=== PATIENT | female | born 1960 | race Caucasian/White ===

== ENCOUNTER → 2021-07-17 10:53 | Outpatient (BNVA) | payer OTHER, SELFPAY | PROVIDERS: PCP Internal Medicine; Visit Provider Physician Assistant Medical | DX: S39.011A Strain of muscle, fascia and tendon of abdomen, initial encounter (principal); S39.012A Strain of muscle, fascia and tendon of lower back, initial encounter; S46.911A Strain of unspecified muscle, fascia and tendon at shoulder and upper arm level, right arm, initial encounter; W18.2XXA Fall in (into) shower or empty bathtub, initial encounter | CPT/HCPCS: 99203 ==

== ENCOUNTER → 2021-07-20 11:16 | Outpatient (BNVA) | payer OTHER, SELFPAY | PROVIDERS: PCP Internal Medicine; Visit Provider Physician Assistant Medical | DX: R10.30 Lower abdominal pain, unspecified (principal); X58.XXXA Exposure to other specified factors, initial encounter | CPT/HCPCS: 99213 ==

== ENCOUNTER → 2021-08-03 10:34 | Outpatient (BNVA) | payer OTHER, SELFPAY | PROVIDERS: PCP Internal Medicine; Visit Provider Physician Assistant Medical | DX: S76.311A Strain of muscle, fascia and tendon of the posterior muscle group at thigh level, right thigh, initial encounter (principal); S39.011A Strain of muscle, fascia and tendon of abdomen, initial encounter; S39.012A Strain of muscle, fascia and tendon of lower back, initial encounter; X58.XXXA Exposure to other specified factors, initial encounter | CPT/HCPCS: 99213 ==

== ENCOUNTER → 2021-08-11 08:23 | Outpatient (BNVA) | payer OTHER, SELFPAY | PROVIDERS: PCP Internal Medicine; Visit Provider Physician Assistant Medical | DX: S39.012D Strain of muscle, fascia and tendon of lower back, subsequent encounter (principal); S39.011D Strain of muscle, fascia and tendon of abdomen, subsequent encounter; S76.311D Strain of muscle, fascia and tendon of the posterior muscle group at thigh level, right thigh, subsequent encounter; X58.XXXD Exposure to other specified factors, subsequent encounter | CPT/HCPCS: 99213 ==

== ENCOUNTER → 2021-08-24 08:33 | Outpatient (BNVA) | payer OTHER, SELFPAY | PROVIDERS: PCP Internal Medicine; Visit Provider Physician Assistant Medical | DX: S39.011D Strain of muscle, fascia and tendon of abdomen, subsequent encounter (principal); S76.311D Strain of muscle, fascia and tendon of the posterior muscle group at thigh level, right thigh, subsequent encounter; S39.012D Strain of muscle, fascia and tendon of lower back, subsequent encounter; X58.XXXD Exposure to other specified factors, subsequent encounter | CPT/HCPCS: 99213 ==

== ENCOUNTER → 2021-08-28 08:01 | Outpatient (BNVA) | payer OTHER, SELFPAY | PROVIDERS: Visit Provider Physician Assistant | DX: S76.311A Strain of muscle, fascia and tendon of the posterior muscle group at thigh level, right thigh, initial encounter (principal); W18.2XXA Fall in (into) shower or empty bathtub, initial encounter; Y93.E1 Activity, personal bathing and showering; Y92.002 Bathroom of unspecified non-institutional (private) residence as the place of occurrence of the external cause; Y99.8 Other external cause status; M54.50 Low back pain, unspecified | CPT/HCPCS: 99202 ==

== ENCOUNTER → 2021-08-31 08:02 | Outpatient (BNVA) | payer OTHER, SELFPAY | PROVIDERS: PCP Pediatrics; Visit Provider Physician Assistant Medical | DX: S76.311D Strain of muscle, fascia and tendon of the posterior muscle group at thigh level, right thigh, subsequent encounter (principal); S39.011D Strain of muscle, fascia and tendon of abdomen, subsequent encounter; S39.012D Strain of muscle, fascia and tendon of lower back, subsequent encounter; X58.XXXD Exposure to other specified factors, subsequent encounter; Z02.79 Encounter for issue of other medical certificate | CPT/HCPCS: 99213 ==

== ENCOUNTER 2021-09-10 07:00 | Outpatient (RCR) | payer OTHER, SELFPAY ==
--- NOTE | 2021-07-22 15:26 | MHC.PT.EP ---
[facility] [place] Office [place] Office [place] Office [address] Celia Mckeon [address] [phone] F: [phone] F: [phone] F: [phone] F: [phone] Physical Therapy Plan of Care Date of Evaluation: Date of Surgery: NA Diagnosis: RIGHT GROIN/HAMSTRING STRAIN, LUMBAR STRAIN. ONSET 07/17/21 Assessment: Pt IS 60 YO F REFERRED TO PT WITH R GROIN/HS STREAIN, LUMBAR STRAIN FROM WC AFTER INJURY ON 07/17/21 WHEN SHE SLIPPED AT WORK (ON LIQUID SOAP) THAT HAD SPILLED ON FLOOR OF SHOWER. Pt WAS ABLE TO GRAB BAR TO STOP FALL. PRESENTS WITH R GROIN PAIN, HS PAIN AND LB PAIN. DECREASED END ROM TRUNK, DECREASED ROM R KNEE WITH ANTALGIC GT. REPORTS LIMITED SIT, STAND, WALK TIME AND DIFFICULTY SLEEPING. SOME RELIEF WITH MM RELAXER. 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 SHOULD BENEFIT FROM PT TO ADDRESS THESE ISSUES. FU 08/03/21 (WITH POSSIBLE RTW) Frequency and Duration: The patient will be seen 2X/WK X 6 WKS Short Term Goals: 1. INCREASED AWARENESS POSTURE, BACK CARE 2. Pt TO PERF 2-3 TASKS WITH PROPER BODY MECH 3. I HEP WITH DC EX PLAN 4. IMPROVED SLEEP 5. 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 R KNEE ROM 0-125 2. INCREASED R LE STRENGTH 1/2 MM GRADE 3. DECREASED R LB/GROIN/LE PAIN AT LEAST 50% WITH ADLS 4. RTW Treatment Plan: Modalities to reduce pain, spasms and effusion. Manual therapy to restore motion and function. Therapeutic exercise to improve strength and flexibility. Neuromuscular re-education for posture and balance. Therapeutic activities to return to functional activities of daily living. Electronically signed by: EMI MONTGOMERY PT Please sign and return to therapist. Thank you for your referral.
--- NOTE | 2021-10-21 13:40 | MHC.PT.DC ---
[facility] [place] Office [place] Office [place] Office [address] Celia Mckeon [address] [phone] F: [phone] F: [phone] F: [phone] F: [phone] Physical Therapy Discharge Report Diagnosis: RIGHT GROIN/HAMSTRING STRAIN, LUMBAR STRAIN. ONSET 07/17/21 Date of Surgery: NA Date of Evaluation: 07/22/21 Date of Discharge: 10/21/21 Treatments to Date: 13 Cancellations to Date: No Shows to Date: Discharge Status: Patient Elected to Stop Physician Discontinued Tx Discharge Summary: Pt SEEN FOR INIT EVAL AND 13 VISITS. PER HER LAST NOTE ON 09/10/21 BY ELLE WHITE PT,DPT Pt continues to ask for review and completion of therex tasks which have been reviewed at length with her in the past. Pt continues to report limited tolerance/endurance of therex and states needs to leave early to meet her other follow up at [facility].' Pt THEN CANCELLED FURTHER APPTS (PER NOTE, Pt TO BE REFERRED FOR MASSAGE THERAPY) Electronically signed by: EMI MONTGOMERY PT Please sign and return to therapist. Thank you for your referral.
== END 2021-10-21 13:40 | disposition home or self-care (01) ==
LOC: HO.PTWFD 07:00
PROVIDERS: Visit Provider Physician Assistant Medical
DX: S39.011D Strain of muscle, fascia and tendon of abdomen, subsequent encounter (principal); S39.012D Strain of muscle, fascia and tendon of lower back, subsequent encounter; S76.911D Strain of unspecified muscles, fascia and tendons at thigh level, right thigh, subsequent encounter
CPT/HCPCS: 97014; 97110; 97140; 97161; 97535

== ENCOUNTER → 2021-09-10 07:56 | Outpatient (BNVA) | payer OTHER, SELFPAY | PROVIDERS: PCP Pediatrics; Visit Provider Physician Assistant Medical | DX: S39.011D Strain of muscle, fascia and tendon of abdomen, subsequent encounter (principal); S76.311D Strain of muscle, fascia and tendon of the posterior muscle group at thigh level, right thigh, subsequent encounter; S39.012D Strain of muscle, fascia and tendon of lower back, subsequent encounter; X58.XXXD Exposure to other specified factors, subsequent encounter | CPT/HCPCS: 99213 ==

== ENCOUNTER → 2021-09-15 11:26 | Outpatient (BNVA) | payer OTHER, SELFPAY | PROVIDERS: PCP Pediatrics; Visit Provider Physician Assistant Medical | DX: S39.011D Strain of muscle, fascia and tendon of abdomen, subsequent encounter (principal); S76.311D Strain of muscle, fascia and tendon of the posterior muscle group at thigh level, right thigh, subsequent encounter; S39.012D Strain of muscle, fascia and tendon of lower back, subsequent encounter; X58.XXXD Exposure to other specified factors, subsequent encounter | CPT/HCPCS: 99213 ==

== ENCOUNTER → 2021-09-21 07:56 | Outpatient (BNVA) | payer OTHER, SELFPAY | PROVIDERS: PCP Pediatrics; Visit Provider Physician Assistant Medical | DX: S39.011D Strain of muscle, fascia and tendon of abdomen, subsequent encounter (principal); S76.311D Strain of muscle, fascia and tendon of the posterior muscle group at thigh level, right thigh, subsequent encounter; X58.XXXD Exposure to other specified factors, subsequent encounter | CPT/HCPCS: 99213 ==

== ENCOUNTER → 2021-10-06 07:48 | Outpatient (BNVA) | payer OTHER, SELFPAY | PROVIDERS: PCP Pediatrics; Visit Provider Physician Assistant Medical | DX: S39.011D Strain of muscle, fascia and tendon of abdomen, subsequent encounter (principal); S76.311D Strain of muscle, fascia and tendon of the posterior muscle group at thigh level, right thigh, subsequent encounter; S39.012D Strain of muscle, fascia and tendon of lower back, subsequent encounter; X58.XXXD Exposure to other specified factors, subsequent encounter | CPT/HCPCS: 99213 ==

== ENCOUNTER → 2021-10-27 07:50 | Outpatient (BNVA) | payer OTHER, SELFPAY | PROVIDERS: PCP Pediatrics; Visit Provider Physician Assistant Medical | DX: S31.113D Laceration without foreign body of abdominal wall, right lower quadrant without penetration into peritoneal cavity, subsequent encounter (principal); S76.311D Strain of muscle, fascia and tendon of the posterior muscle group at thigh level, right thigh, subsequent encounter; S39.012D Strain of muscle, fascia and tendon of lower back, subsequent encounter; X58.XXXD Exposure to other specified factors, subsequent encounter | CPT/HCPCS: 99213 ==

== ENCOUNTER → 2024-04-17 13:48 | Outpatient (BNVA) | payer OTHER, SELFPAY | PROVIDERS: PCP Pediatrics; Visit Provider Registered Nurse | DX: S90.01XA Contusion of right ankle, initial encounter (principal); W22.8XXA Striking against or struck by other objects, initial encounter | CPT/HCPCS: 73610; 99203 ==

== ENCOUNTER → 2024-04-20 09:37 | Outpatient (BNVA) | payer OTHER, SELFPAY | PROVIDERS: PCP Pediatrics; Visit Provider Registered Nurse | DX: S90.01XA Contusion of right ankle, initial encounter (principal); W22.8XXA Striking against or struck by other objects, initial encounter | CPT/HCPCS: 99213 ==

== ENCOUNTER → 2024-04-23 08:12 | Outpatient (BNVA) | payer OTHER, SELFPAY | PROVIDERS: PCP Pediatrics; Visit Provider Registered Nurse | DX: S90.01XA Contusion of right ankle, initial encounter (principal); W22.8XXA Striking against or struck by other objects, initial encounter | CPT/HCPCS: 99213 ==

== ENCOUNTER → 2024-04-27 08:55 | Outpatient (BNVA) | payer OTHER, SELFPAY | PROVIDERS: PCP Pediatrics; Visit Provider Registered Nurse | DX: S93.401A Sprain of unspecified ligament of right ankle, initial encounter (principal); W22.8XXA Striking against or struck by other objects, initial encounter | CPT/HCPCS: 99213 ==

== ENCOUNTER → 2024-05-14 10:51 | Outpatient (BNVA) | payer OTHER, SELFPAY | PROVIDERS: PCP Pediatrics; Visit Provider Physician Assistant Medical | DX: S97.01XD Crushing injury of right ankle, subsequent encounter (principal); W22.8XXD Striking against or struck by other objects, subsequent encounter | CPT/HCPCS: 73610; 99213 ==

== ENCOUNTER → 2024-05-25 09:25 | Outpatient (BNVA) | payer OTHER, SELFPAY | PROVIDERS: PCP Pediatrics; Visit Provider Registered Nurse | DX: S90.01XD Contusion of right ankle, subsequent encounter (principal); W22.8XXD Striking against or struck by other objects, subsequent encounter | CPT/HCPCS: 99214 ==

== ENCOUNTER → 2024-06-04 15:09 | Outpatient (BNVA) | payer OTHER, SELFPAY | PROVIDERS: PCP Pediatrics; Visit Provider Physician Assistant Medical | DX: S90.01XD Contusion of right ankle, subsequent encounter (principal); W22.8XXD Striking against or struck by other objects, subsequent encounter | CPT/HCPCS: 99213 ==

== ENCOUNTER → 2024-06-26 14:38 | Outpatient (BNVA) | payer OTHER, SELFPAY | PROVIDERS: PCP Pediatrics; Visit Provider Registered Nurse | DX: S90.01XD Contusion of right ankle, subsequent encounter (principal); W22.8XXD Striking against or struck by other objects, subsequent encounter | CPT/HCPCS: 99214 ==

== ENCOUNTER 2024-07-14 10:47 | Outpatient (REF) | payer OTHER, SELFPAY ==
--- NOTE | ~2024-07-14 | MR_ITS ---
EXAMINATION: MR ANKLE WITHOUT CONTRAST, RIGHT CLINICAL INFORMATION: Right ankle pain, swelling, numbness. Medial malleolar trauma on 04/16/2024. COMPARISON: Right ankle radiographs dated 04/17/2024 and 05/14/2024. TECHNIQUE: MRI of the ankle was performed using routine sequences on a high-field scanner. FINDINGS: BONE AND ARTICULAR CARTILAGE: Focal marrow edema within the dorsal/lateral aspect of the navicula as well as minimal patchy edema within the proximal aspect of the medial cuneiform. Additional patchy marrow edema within the calcaneal neck adjacent to the angle of the [place]. Findings could represent stress reactions or osseous contusions. No fracture. No dislocation. No talar osteochondral lesion. Intact articular cartilage. ACHILLES TENDON: Mild edema adjacent to the distal Achilles tendon consistent with minimal peritendinitis. No tendon tear. OTHER TENDONS: Intact. LIGAMENTS: Heterogeneity of the anterior and posterior talofibular ligaments consistent with remote sprain/partial tears. No evidence of acute ligament injury. JOINT FLUID AND SOFT TISSUES: No joint effusion. No soft tissue mass or fluid collection. PLANTAR FASCIA: Tiny plantar calcaneal spur with minimal reactive marrow edema which could indicate minimal plantar fasciitis. No fascial tear. SINUS TARSI AND TARSAL TUNNEL: Mild edema within the sinus tarsi which can be seen in the setting of sinus tarsi syndrome. Patent tarsal tunnel. MR/MR ankle RT wo con IMPRESSION: 1. Focal marrow edema within the dorsal/lateral aspect of the navicular as well as minimal patchy edema within the medial cuneiform and calcaneal neck. Findings could represent stress reactions or osseous contusions. No associated fracture line. 2. Minimal distal Achilles peritendinitis without a measurable tendon tear. 3. Remote sprain/partial tears of the anterior and posterior talofibular ligaments. No evidence of acute ligament injury. 4. Tiny plantar calcaneal spur with minimal reactive marrow edema which could indicate minimal plantar fasciitis. 5. Mild edema within the sinus tarsi which can be seen in the setting of sinus tarsi syndrome. Electronically signed by: Jeffy Turpin MD 07/17/2024 02:10 PM EDT Workstation: [id number]
== END 2024-07-14 10:48 | disposition home or self-care (01) ==
LOC: HO.MRI 10:47
PROVIDERS: PCP Pediatrics; Visit Provider Internal Medicine
DX: R60.0 Localized edema (principal); R20.0 Anesthesia of skin
CPT/HCPCS: 73721

== ENCOUNTER 2024-07-19 07:00 | Outpatient (RCR) | payer OTHER, SELFPAY ==
--- NOTE | 2024-05-22 12:16 | MHC.PT.EP ---
[facility] [place] Office [place] Office [place] Office [address] Celia Mckeon [address] [phone] F: [phone] F: [phone] F: [phone] F: [phone] Physical Therapy Plan of Care Date of Evaluation: 05/22/24 Date of Surgery: NA Diagnosis: Per Jennifer Sheehan PA-C: R ankle injury. Treat 2-3X/wk for 4-6 wks, date of script 05/14/24 Assessment: Pt. is a 63 y/o female referred to PT from Jennifer Sheehan PA-C from [facility] date of script on 05/14/24 following an ankle injury at work on 04/16/24. She presents with decreased strength and ROM ankle PF, DF, eversion//eversion, and rearfoot eversion/inversion on the R (painful), decreased great toe extension strength and ROM on the R (painful), increased R ankle/foot swelling, pain w/ subtalar and talocrural joint distraction, tight R soleus ms, and TTP to R medial/anterior ankle/foot. Has weakness and pain with plantar flexion/inversion (tib posterior), sx with active DF (anterior tibialis) She is currently very guarded and not putting equal weight on both extremities. Due to her injury she is currently out of work. Based on the treatment findings, the pt is a good candidate for PT. She is currently in good health and has had a positive outcome with PT in the past. She will attend PT 2-3X/wk for 4-6 wks. Treatment will include LE ROM and strengthening exercises (OKC and CKC), joint mobilizations, and manual therapy/modalities as needed. After today's visit pt was encouraged to continue to ice often and work on ankle pumps and gentle ankle motion inversion/eversion ROM. Pt. also mentioned increased stress during this time and PT talked to the pt about other resources such as a counselor/therapist due to other factors which have occurred in her life. Pt reports history of workplace support counseling services, therapist encouraged patient to reach out to access these services. Frequency and Duration: The patient will be seen 2X-3/wk for 4-6 wks Short Term Goals: -Increase R ankle AROM dorsiflexion to 12 degrees (IR: 12 degrees) -Increase R ankle AROM plantarflexion to 50 degrees (IR: 30 degrees) -Pt will be able to tie her shoes fully due to decreased swelling -Demonstrate symmetrical weight-bearing with functional squat. -Pt will negotiate 6 inch step with reciprocal motion. -Pt RTW ligth duty with good body mechanics/safety to avoid reinjury . [facility] Goals: -Pt. will be able to stand for 1 hour w/o sx's >2/10 -Pt. will increase R dorsiflexion strength to 5/5 (IR: 3+/5) -Pt. will increase R eversion strength to 5/5 (IR: 3+/3) -Pt will increase LEFI score by 25% -Pt. will be independent w/ HEP -Pt will RTW full duty with good mechanics and safety to avoid reinjury. Treatment Plan: Modalities to reduce pain, spasms and effusion. Manual therapy to restore motion and function. Therapeutic exercise to improve strength and flexibility. Neuromuscular re-education for posture and balance. Therapeutic activities to return to functional activities of daily living. Electronically signed by: Stephanie Ibarra, PT, DPT Please sign and return to therapist. Thank you for your referral.
--- NOTE | 2024-06-29 09:36 | MHC.PT.OD ---
[facility] [place] Office [place] Office [place] Office [address] Celia Mckeon [address] [phone] F: [phone] F: [phone] F: [phone] F: [phone] Physical Therapy Daily Note Diagnosis: Per Jennifer Sheehan PA-C: R ankle injury. Treat 2-3X/wk for 4-6 wks, date of script 05/14/24 Date of Surgery: NA Date of Evaluation: 05/22/24 Date of Treatment: 06/29/24 Treatments to Date: 9 Cancellations to Date: No Shows to Date: Authorized Visits: Insurance End Date: Precautions/ Contraindications:hx work related injury DOI 04/16/24 Pt reports history of multiple incident of being run over by DIVYA ? work safety Subjective: Pt taking naproxen. States is waiting on an MRI and ortho follow up. Pain Score and Location: 5 R MEDIAL ANKLE Objective Flowsheet: Tests & Measures Rates sx 4-710 over medial aspect of ankle, TTP posterior tibialis tendon. Functional squat: fair symmetry with sx reported end range at 45 degrees medial aspect of R ankle L SLS 4 seconds with loss of stability, weakness in knee/trunk/core noted R SLS <2 seconds with report of pain medial aspect TP on R ankle AROM PF 35 degrees limited by pain, PROM 40, AROM DF -10 degrees PROM near neutral, AAROM seated DF 5 degrees, AROM IV 5 degrees sx, PROM 5 limited by pain AROM EV 2 degrees sx, PROM 5 degrees limited by pain TTP posterior tibialis tendon DF 4/5, R PF 3+/5, R IV 3/5, R EV 3/5. Pt able to ascend and descend stairs expresses descending a 6 inch step step I can do this, it is easy. Sx with lateral step up and trial of squatting this . Exercises Scifit bike seat 7 level 2.6-3 [id number] FOR WARM UP Reassessment completed: see below: SQUAT able to do 45 degrees, deeper than 45 had pain, L SLS >20 seconds, R SLS 5 seconds with report of pressure and pain in posterior tib region. R DF 3+/5, R PF 3/5 but pain, R IV 3/5 sx, R EV 4/5. Pt unable to crouch, expresses pain with rising from half-kneeling on either side with UE support required. Attempt of standing 4 way resisted hip- performed hip extension on R LE with clog on while taped x 12R and then had onset of burning (only did standing on R hip extension). Pt noted to take her shoe off and deferred other trial movements in CK due to report of burning stating, it comes and goes I dont know why. Pt completed seated ankle DF stretch x 5R x 20 seconds, reinforcement of stretching ankle gastroc stretch to tolerance. Pt deferred trial of seated BAPS, expressing worsening burning sx since Tuesday session. Encouraged AAROM DF stretch, AROM of ankle all planes to tolerance. STANDING 4 WAY HIP (TO WORK ON ANKLE STABILITY) WITH RED TB X 10 R EA DIRECTION, EA SIDE ROCKTAPE support provided for tib posterior support (pt wearing clogs this date) Pt QUESTIONS UE OF TENS (HAS ONE SHE CAN USE) ED RE BENEFIT VS NON BENEFIT OF TENS USE Modalities ED TO ICE PRN TODAY Assessment: 06/29/24: Pt has attended 9 session of PT to date exhibiting plateaued status with initial positive gain with introduction into [facility], now today expressing worsening pain and limited tolerance. She reports soreness following last session *had pain with active standing heel raise*. Today AROM R DF 10, AROM PF 22 limited by pain, AROM IV 2, PROM 5 limited by pain, AROM EV 2, PROM 5 limited by pain. Pt TTP posterior tib tendon, reports pain at night which wakes her. Pt expresses use of naproxen. Pt is able to squat to 45 degrees but expresses pain medial inferior ankle/tib posterior region with greater depth. She is unable to crouch down without expressing worsening pain in that area. She had greater difficulty rising from a half kneeling on the right>left side. Able to do 6 inch step ascending/descending with R LE slowly but has pain with more than a few reps. She was able to get up with assistance from her upper body. L SLS >20 seconds, R SLS <5 seconds with report of pain in posterior tib area. Pt expresses sx of burning in medial aspect of ankle. Pt completed standing extension and was noted to stop stating, its burning and it comes and goes. Pt exhibits plataeaued progress with PT, expressing worsening pain and report of burning with trial of CKC today. She was offered to trial seated>standing BAPS but deferred. She is awaiting orthopedic/MRI of her R ankle. Pt was encouraged to perform icing and use anti-inflammatory as prescribed by her provider. Pt will be tapered in frequency to 1x/week due to plateaued status, await ortho/MRI. Pt exhibits signs and sx consistent with a R posterior tib tendonitis. Pt verbalizes burning and pain with ambulation. Pt states this AM was not bothersome before coming in to office. Poor tolerance for CKC tasks trial>attempt today. Held further CKC due to pt sx/report of pain, rated 5/10. PT Plan: Pt to continue 1x/week. Short Term Goals: -Increase R ankle AROM dorsiflexion to 12 degrees (IR: 12 degrees) -Increase R ankle AROM plantarflexion to 50 degrees (IR: 30 degrees) -Pt will be able to tie her shoes fully due to decreased swelling -Demonstrate symmetrical weight-bearing with functional squat. -Pt will negotiate 6 inch step with reciprocal motion. -Pt RTW ligth duty with good body mechanics/safety to avoid reinjury . Longterm Goals: -Pt. will be able to stand for 1 hour w/o sx's >2/10 -Pt. will increase R dorsiflexion strength to 5/5 (IR: 3+/5) -Pt. will increase R eversion strength to 5/5 (IR: 3+/3) -Pt will increase LEFI score by 25% -Pt. will be independent w/ HEP -Pt will RTW full duty with good mechanics and safety to avoid reinjury. Electronically signed by: Stephanie Ibarra, PT, DPT
== END 2024-09-18 13:26 | disposition home or self-care (01) ==
LOC: HO.PTWFD 07:00
PROVIDERS: PCP Pediatrics; Visit Provider Physician Assistant Medical
DX: S99.911D Unspecified injury of right ankle, subsequent encounter (principal)
CPT/HCPCS: 97110; 97140; 97161; 97164; 97530

== ENCOUNTER 2024-07-20 08:01 | Outpatient (AMB) | payer OTHER, SELFPAY ==
--- NOTE | 2024-07-20 08:19 | A.OFFVIS_ITS ---
Vital Signs 07/20/24 08:22 Height 5 ft 4 in Weight 178 lb BMI 30.6 Handedness Right Intake Visit Reasons: New Pt - RT ankle injury, 04/16/24 Intake Note: Giuliana is a 63 year old female who presents today as a new patient for a evaluation of her right ankle injury, 04/16/24. MRI was done on 07/14/24. Patient reports pushing a divya lift at work and she was hit on the medial side of her ankle. 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 Allergies No Known Allergies Allergy (Verified 07/20/24 08:21) HPI HPI New Pt - RT ankle injury, 04/16/24: Details: 63-year-old female who presents in the office today for an evaluation of right ankle pain. The patient was originally seen at [facility] on 04/17/24 status post injuring her right ankle while at work on 04/16/24. While under the care of [facility] the patient has been attending physical therapy since 05/22/24 for 11 sessions, working on home exercises, using kinesiology tape, ankle brace, and she was prescribed naproxen 500 mg BID PRN. Due to the patient reporting continued pain and no progression with physical therapy an MRI was ordered. ? ? While in the office today, the patient reports she was pushing a [employer] lift at work and it hit her on the medial aspect of the right ankle. She confirms attending PT but states it gave her no relief. ? 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 No ecchymosis, erythema, or edema. Tenderness to palpation along the tibial tendon. Patient is able to demonstrate dorsiflexion, plantar flexion, pronation and supination. Negative anterior drawer.?Report intermitting numbness and tingling associated with pain.?Pedal Pulse intact.? Assessment & Plan Assessment & Plan (1) Contusion of right ankle: Code(s): S90.01XA - Contusion of right ankle, initial encounter Category: Medical (2) Right ankle pain: Code(s): M25.571 - Pain in right ankle and joints of right foot Category: Medical Plan Ms. Juarez is a 63-year-old female who presents in the office today for an evaluation of right ankle pain. The patient was originally seen at [facility] on 04/17/24 status post injuring her right ankle while at work on 04/16/24. While under the care of [facility] the patient has been attending physical therapy since 05/22/24 for 11 sessions, working on home exercises, using kinesiology tape, ankle brace, and she was prescribed naproxen 500 mg BID PRN. Due to the patient reporting continued pain and no progression with physical therapy an MRI was ordered. ? ? While in the office today, the patient reports she was pushing a [employer] lift at work and it hit her on the medial aspect of the right ankle. She confirms attending PT but states it gave her no relief.? ? The patient will continue on light duty status at work. She does report intermitting numbness and tingling associated with pain. She states she is unable to stand for long periods of time due to pain. She has been attending physical therapy but feels she has hit a plateau and is unable to progress. Therefore, we will order an EMG study to evaluate the nerves in the right ankle. The patient was supplied with ROI² card and will call one the EMG is obtained. Follow-up will be after the EMG is obtained, or sooner if needed. ? ? MRI of the right ankle, obtained on 07/14/24, revealed:? 1. Focal marrow edema within the dorsal/lateral aspect of the navicular as well as minimal patchy edema within the medial cuneiform and calcaneal neck. Findings could represent stress reactions or osseous contusions. No associated fracture line.? 2. Minimal distal Achilles peritendinitis without a measurable tendon tear.? 3. Remote sprain/partial tears of the anterior and posterior ? talofibular ligaments. No evidence of acute ligament injury.? 4. Tiny plantar calcaneal spur with minimal reactive marrow edema which could indicate minimal plantar fasciitis.? 5. Mild edema within the sinus tarsi which can be seen in the setting of sinus tarsi syndrome.? ? X-rays of the right ankle, obtained on 05/14/24, revealed no acute fracture or dislocation. ? Orders: Orders NE electromyogram (EMG) Today M25.571 - Pain in right ankle and joints of right foot Patient Instructions: Scribed by Salome Pierce medical transcription, for Tuyet Rey PA-C on 07/20/2024 at 8:43 am, EST.? Coding Level of Care Code New Pt Level 4 (13342) Complex EM visit Add On G2211 Diagnoses Contusion of right ankle S90.01XA Right ankle pain M25.571
[2024-07-20 08:22] VITALS: BMI 30.6
== END 2024-07-20 08:46 | disposition home or self-care (01) ==
PROVIDERS: PCP Pediatrics; Visit Provider Physician Assistant
DX: S90.01XA Contusion of right ankle, initial encounter (principal)
CPT/HCPCS: 99213

== ENCOUNTER → 2024-07-20 08:01 | Outpatient (BNVA) | payer OTHER, SELFPAY | PROVIDERS: PCP Pediatrics; Visit Provider Physician Assistant | DX: S90.01XA Contusion of right ankle, initial encounter (principal) | CPT/HCPCS: 99212 ==

== ENCOUNTER 2024-09-13 13:06 | Outpatient (REF) | payer OTHER, SELFPAY ==
--- NOTE | 2024-09-13 13:09 | EMG_ITS ---
Chief complaint: Right medial ankle pain, especially after walking uneven surfaces or going upstairs. Denies any numbness. No footdrop. Right ankle appears more swollen than left side. No redness, hypersensitivity to touch or allodynia. Reason for referral: Evaluate for neuropathy Referred by: Tuyet BORGES Procedure done: Right lower extremity NCS/EMG Precautions and/or limitations: None The limb temperature was monitored continuously and remained between 32-36 degrees C during the performance of the NCS. Nerve Conduction Studies Anti Sensory Summary Table ?Stim Site NR Onset (ms) Norm Onset (ms) Peak (ms) Norm Peak (ms) O-P Amp (?V) Norm O-P Amp Site1 Site2 Delta-0 (ms) Dist (cm) Gera (m/s) Norm Gera (m/s) Right Saphenous Anti Sensory (Ant Med Mall) 14cm ? 2.8 3.6 <4.4 13.8 >2 14cm Ant Med Mall 2.8 0.0 Right Sural Anti Sensory (Lat Mall) Calf ? 2.3 3.3 <4.0 8.6 >5.0 Calf Lat Mall 2.3 14.0 61 Motor Summary Table ?Stim Site NR Onset (ms) Norm Onset (ms) O-P Amp (mV) Norm O-P Amp iAmp (mV) Amp (1st) (%) Site1 Site2 Delta-0 (ms) Dist (cm) Gera (m/s) Norm Gera (m/s) Right Peroneal Motor (Ext Dig Brev) Ankle ? 3.4 <4.0 4.6 >2.5 5.1 100.0 Ankle Ext Dig Brev 3.4 0.0 B Fib ? 9.5 3.9 4.3 84.8 B Fib Ankle 6.1 30.5 50 >40 Poplt ? 10.3 3.8 4.2 82.6 Poplt B Fib 0.8 5.0 62 >40 Right Tibial Motor (Abd Lizama Brev) Ankle ? 3.4 <5 9.3 >2.5 14.9 100.0 Ankle Abd Lizama Brev 3.4 0.0 Knee ? 11.1 4.4 7.6 47.3 Knee Ankle 7.7 38.0 49 >40 EMG ?Side Muscle Nerve Root Ins Act Fibs Psw Amp Dur Poly Recrt Int Pat Comment Right AbdHallucis MedPlantar S1-2 Nml Nml Nml Nml Nml 0 Nml Complete Right AntTibialis Dp Br Peron L4-5 Nml Nml Nml Nml Nml 0 Nml Complete Right PostTibialis Tibial L5, S1 Nml Nml Nml Nml Nml 0 Nml Complete Right MedGastroc Tibial S1-2 Nml Nml Nml Nml Nml 0 Nml Complete Right VastusMed Femoral L2-4 Nml Nml Nml Nml Nml 0 Nml Complete FINDINGS: All motor and sensory nerves tested showed normal latencies, amplitudes and conduction velocities. Concentric needle EMG was performed in selected muscles of the right lower extremity. Study did not reveal signs of electric abnormalities as shown in the table above. IMPRESSION: 1. This is a normal study. 2. There is no electrodiagnostic evidence for peroneal neuropathy, tibial neuropathy, lumbosacral plexopathy, lumbar radiculopathy, or peripheral neuropathy. Thank you for your kind referral. Aimee Dominguez MD, PALLAVI Board Certified, [place] [employer] and Rehabilitation (ABPMR) Board Certified, [place] Board of Electrodiagnostic Medicine (ABEM) CODIN [address] MTDD
== END 2024-09-13 13:07 | disposition home or self-care (01) ==
LOC: HO.NEURO 13:06
PROVIDERS: PCP Pediatrics; Visit Provider Physician Assistant
DX: M25.571 Pain in right ankle and joints of right foot (principal); R60.0 Localized edema
CPT/HCPCS: 95886; 95908

== ENCOUNTER → 2024-09-13 13:09 | Outpatient (BNV) | payer OTHER, SELFPAY | PROVIDERS: PCP Pediatrics; Visit Provider Physical Medicine & Rehabilitation | DX: M25.571 Pain in right ankle and joints of right foot (principal) | CPT/HCPCS: 95886; 95908 ==

== ENCOUNTER 2024-09-21 11:14 | Outpatient (AMB) | payer OTHER, SELFPAY ==
[2024-09-21 11:17] VITALS: BMI 30.6
--- NOTE | 2024-09-21 11:17 | A.OFFVIS_ITS ---
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 Referred by KATERINA Valverde. Patient states her right ankle pain wakes her at night. She has been experiencing a shooting pain that goes into the ankle. Patient describes pain as a bad sprain . She has been taking Tylenol PRN with minimal relief. She only gets relief of pain pain with certain positions. She is currently working with light duty restrictions. She is unable to use stairs. She tried PT but did this not help. Allergies No Known Allergies Allergy (Verified 09/21/24 11:20) HPI Comments Details: Patient has been followinng orthopedics Tuyet BORGES. I saw patient once for EMG/NCS. Results as below: IMPRESSION: 1. This is a normal study. 2. There is no electrodiagnostic evidence for peroneal neuropathy, tibial neuropathy, lumbosacral plexopathy, lumbar radiculopathy, or peripheral neuropathy. Patient says injury was 04/22/24, a patti lift hit her on right medial ankle. Noted that pain was during ambulation. Could not bear weight. There was some swelling and redness. Applied ice. I think the working diagnosis was ankle sprain. Since then, had 7 visits of PT. Helped from prevention of stiffness. But patient noted that walking on uneven ground, it would feel even worse, described as achy. Aches like a tooth pain. Hard to explain. Sometimes shooting pain across the foot, sometimes shooting pain to the big toe. Denies hypersensitivity to touch. Feels cold to touch. Denies numbness. No foot drop. No achilles pain. She did have pain on lateral ankle, and feels swollen. MRI ankle was ordered by Dr. Hermosillo: IMPRESSION: 1. Focal marrow edema within the dorsal/lateral aspect of the navicular as well as minimal patchy edema within the medial cuneiform and calcaneal neck. Findings could represent stress reactions or osseous contusions. No associated fracture line. 2. Minimal distal Achilles peritendinitis without a measurable tendon tear. 3. Remote sprain/partial tears of the anterior and posterior talofibular ligaments. No evidence of acute ligament injury. 4. Tiny plantar calcaneal spur with minimal reactive marrow edema which could indicate minimal plantar fasciitis. 5. Mild edema within the sinus tarsi which can be seen in the setting of sinus tarsi syndrome. Initially she was off work for at least a week. She tried to go back to work but felt worse around May. Had gone off again, used crutches and somewhat at that time, with rest, felt better. 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 Was given rafael bandage. Bought her own wrap around ankle brace but that would not fit her clogs that she wear at work. Clogs feel more supportive than sneakers. 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 MSK: Tender and swollen on top of right talofibular ligaments. Maybe slightly warm. No redness. No allodynia. No hypersensitivity to touch. No changes in skin or temperature. No tenderness over Achillis. No tenderness over plantar fascia. No footdrop but shows give-way weakness due to pain. No ankle instability. Results Reviewed Results Reviewed: Ordering Physician: Chance Hermosillo MD Date of Service: 07/14/24 Procedure(s): MR ankle RT wo con Accession Number(s): [id number] cc: Chance Hermosillo MD; BECKY FRYE MD~ EXAMINATION: MR ANKLE WITHOUT CONTRAST, RIGHT CLINICAL INFORMATION: Right ankle pain, swelling, numbness. Medial malleolar trauma on 04/16/2024. COMPARISON: Right ankle radiographs dated 04/17/2024 and 05/14/2024. TECHNIQUE: MRI of the ankle was performed using routine sequences on a high-field scanner. FINDINGS: BONE AND ARTICULAR CARTILAGE: Focal marrow edema within the dorsal/lateral aspect of the navicula as well as minimal patchy edema within the proximal aspect of the medial cuneiform. Additional patchy marrow edema within the calcaneal neck adjacent to the angle of the Gissane. Findings could represent stress reactions or osseous contusions. No fracture. No dislocation. No talar osteochondral lesion. Intact articular cartilage. ACHILLES TENDON: Mild edema adjacent to the distal Achilles tendon consistent with minimal peritendinitis. No tendon tear. OTHER TENDONS: Intact. LIGAMENTS: Heterogeneity of the anterior and posterior talofibular ligaments consistent with remote sprain/partial tears. No evidence of acute ligament injury. JOINT FLUID AND SOFT TISSUES: No joint effusion. No soft tissue mass or fluid collection. PLANTAR FASCIA: Tiny plantar calcaneal spur with minimal reactive marrow edema which could indicate minimal plantar fasciitis. No fascial tear. SINUS TARSI AND TARSAL TUNNEL: Mild edema within the sinus tarsi which can be seen in the setting of sinus tarsi syndrome. Patent tarsal tunnel. MR/MR ankle RT wo con IMPRESSION: 1. Focal marrow edema within the dorsal/lateral aspect of the navicular as well as minimal patchy edema within the medial cuneiform and calcaneal neck. Findings could represent stress reactions or osseous contusions. No associated fracture line. 2. Minimal distal Achilles peritendinitis without a measurable tendon tear. 3. Remote sprain/partial tears of the anterior and posterior talofibular ligaments. No evidence of acute ligament injury. 4. Tiny plantar calcaneal spur with minimal reactive marrow edema which could indicate minimal plantar fasciitis. 5. Mild edema within the sinus tarsi which can be seen in the setting of sinus tarsi syndrome. I reviewed records from the following: Case was previously discussed with ortho Assessment & Plan Assessment & Plan (1) Sprain of talofibular ligament of right ankle: Code(s): S93.491A - Sprain of other ligament of right ankle, initial encounter Category: Medical Plan Suspect she is still suffering from right talofibular ankle sprain that has not healed completely. MRI confirms this diagnosis. She continues to have tenderness and some swelling over the talofibular ligaments. Causing some radiating pain towards the medial aspect of the ankle. No signs of Achillis tendinitis. EMG/NCS was negative for neuropathy. I thought about diagnosis of CRPS but she does not have any signs of allodynia, hypersensitivity, temperature or skin changes. We will hold off on any referral to pain management for intervention for CRPS for now. Discussed this with patient so she would understand the thought process. Best treatment for ankle sprain is rest. Unfortunately she can not afford to be off work. So we decided to put her on a walking boot for now. This would afford the support and stability needed for the ankle while allowing her to be up on her feet at work. This is to be worn only during work. Take off the boot when at home. But when she is at home or resting, she should ice up to 3 times a day, 50 minutes at a time and elevate. Advised ibuprofen 600 mg t.i.d. for 7 days. Take with full stomach. Continue current work restrictions for now. Assessment and plan discussed with patient, and patient was agreeable. All quest ions were answered thoroughly. Follow up 4 weeks. Aimee Dominguez MD, PALLAVI Board Certified, [place] [employer] and Rehabilitation (ABPMR) Board Certified, [place] Board [employer] Electrodiagnostic Medicine (ABEM) Coding Level of Care Code New Pt Level 4 (28031) Complex EM visit Add On G2211 Diagnoses Sprain of talofibular ligament of right ankle S93.498H
== END 2024-09-21 12:14 | disposition home or self-care (01) ==
PROVIDERS: PCP Pediatrics; Visit Provider Physical Medicine & Rehabilitation
DX: S93.491A Sprain of other ligament of right ankle, initial encounter (principal)
CPT/HCPCS: 99213; G2211

== ENCOUNTER → 2024-09-21 11:14 | Outpatient (BNVA) | payer OTHER, SELFPAY | PROVIDERS: PCP Pediatrics; Visit Provider Physical Medicine & Rehabilitation | DX: S93.491A Sprain of other ligament of right ankle, initial encounter (principal) | CPT/HCPCS: 99212 ==

== ENCOUNTER 2024-10-25 09:58 | Outpatient (AMB) | payer OTHER, SELFPAY ==
--- OUTSIDE RECORDS SUMMARY | 2024-10-25 10:01 | XMS_ITS ---
Author Name [facility] Organization Unknown History of Medication Use Medication Directions Dispensed Refills Start Date End Date Status cholecalciferol (VITAMIN D-3) 25 mcg (1,000 unit) tablet Take 2 tablets (2,000 Units total) by mouth 1 (one) time each day. 4 11/06/99 active acetaminophen (TYLENOL) 325 mg tablet Take 2 tablets (650 mg total) by mouth. 4 11/06/99 active naproxen (NAPROSYN) 500 mg tablet Take 1 tablet (500 mg total) by mouth 2 (two) times a day. 11/06/99 active albuterol HFA (PROAIR HFA ; PROVENTIL HFA ; VENTOLIN HFA) 90 mcg/actuation inhaler Inhale 2 puffs by mouth every 4 (four) hours if needed for wheezing (cough). 11/06/99 active ibuprofen (ADVIL,MOTRIN) 600 mg tablet Take 1 tablet (600 mg total) by mouth. 11/06/99 active estradioL (ESTRACE) 0.01 % (0.1 mg/gram) vaginal cream Apply a pea-sized amount of cream with your finger into the vagina daily at bedtime for 2 weeks, then two times a week at night. 11/06/99 active vitamin C tablet Take 1 tablet (100 mg total) by mouth 1 (one) time each day. 4 11/06/99 active acetaminophen (TYLENOL) tablet 975 mg 975 mg, Oral, Once, On Tue08/27/24 at 0645, For 1 dose, Pre-op 4 11/06/99 completed ibuprofen 600 MG tablet TAKE 1 TABLET BY MOUTH EVERY 6 HOURS 4 11/06/99 aborted polyethylene glycol (MIRALAX) 17 g packet Take 17 g by mouth daily. 4 11/06/99 active ondansetron (ZOFRAN) injection 4 mg 4 mg, Intravenous, Once as needed, nausea, vomiting, Starting on Tue08/27/24 at 0834, For 1 dose, PACU/Phase 1Administer 1st unless given in OR, then administer dexamethasone 11/06/99 active Scopolamine (TRANSDERM-SCOP) 1 MG/3DAYS 1 patch 1 patch, Transdermal, Administer over 72 Hours, Once, On Tue08/27/24 at 0645, For 1 dose, [id number]. For patients 65 years old or less, apply to skin behind right ear. Remove patch Post-Op day #1 at 0600 hours.??Hold for patients greater than?65 years or for patients with history of glaucoma.??T 11/06/99 active vancomycin (VANCOCIN) 1,000 mg in sodium chloride 0.9% (NS) 250 mL IVPB-MBP 1,000 mg, Intravenous, at 250 mL/hr, Once, On Tue08/27/24 at 0645, For 1 dose, Pre-opMUST BE GIVEN IN PRE-OP. RELEASE EARLY MEDICATION TAKES 1 HOUR TO INFUSE. MUST BE COMPLETED BY TIME OF INCISION. 11/06/99 completed acetaminophen (TYLENOL) tablet 650 mg 650 mg, Oral, Every 6 hours PRN, mild pain (1-3), Starting on Tue08/27/24 at 0834, PACU/Phase 1 11/06/99 active sulfamethoxazole-tri methoprim (BACTRIM DS) 800-160 MG per tablet Take 1 tablet (160 mg of trimethoprim total) by mouth 2 (two) times a day for 7 days. 11/06/99 active HYDROmorphone (DILAUDID) injection 0.5 mg 0.5 mg, Intravenous, Every 15 min PRN, severe pain (7-10), Starting on Tue08/27/24 at 0834, PACU/Phase 1FOR PACU USE ONLY.??If unable to take by mouth.??Do not exceed 2 mg.?Administer IV push over 2-3 minutes. 11/06/99 active lactated ringers infusion 100 mL/hr, Intravenous, Continuous, Starting on Tue08/27/24 at 0645, Pre-op 4 11/06/99 active lidocaine (Lidoderm) 5 % Place 1 patch onto the skin every 12 (twelve) hours for 30 days. Remove & Discard patch within 12 hours. Wait for 12 hours prior to placing another patch 11/06/99 active dimenhyDRINATE (DRAMAMINE) injection 25 mg 25 mg, Intravenous, Once as needed, nausea, Nausea, vomiting, Starting on Tue08/27/24 at 0834, For 1 dose, PACU/Phase 1Administer 3rd unless given in the OR if zofran and decadron are ineffective and patient continues to be symptomatic.??INTRAM USCULAR: No dilution required INTRAVENOUS: Must dilute 4 11/06/99 active orphenadrine (NORFLEX) injection 30 mg 30 mg, Intravenous, Once as needed, muscle spasms, for musculoskeletal pain, to achieve pain scale less than or equal to 4, Starting on Tue08/27/24 at 0834, For 1 dose, PACU/Phase 1 4 11/06/99 active HYDROmorphone (DILAUDID) injection 0.2 mg 0.2 mg, Intravenous, Every 15 min PRN, moderate pain (4-6), Starting on Tue08/27/24 at 0834, PACU/Phase 1FOR PACU USE ONLY.??If unable to take by mouth.??Do not exceed 2 mg.?? 11/06/99 active oxyCODONE (ROXICODONE) 5 MG immediate release tablet 5 mg 5 mg, Oral, Every 4 hours PRN, moderate pain (4-6), achieve pain scale less than or equal to 4, Starting on Tue08/27/24 at 0834, For 2 doses, PACU/Phase 1Give when patient is able to take PO. 4 11/06/99 active dexamethasone (DECADRON) injection 4 mg 4 mg, Intravenous, Once as needed, other, nausea, vomiting, Starting on Tue08/27/24 at 0834, For 1 dose, PACU/Phase 1Administer 2nd unless given in the OR if zofran is ineffective and patient continues to be symptomatic. 4 11/06/99 99 active meperidine (DEMEROL) 25 MG/ML injection 12.5 mg 12.5 mg, Intravenous, Every 30 min PRN, shivering not due to postoperative hypothermia., Starting on 08/27/24 at 0834, For 2 doses, PACU/Phase 1May repeat x 1 in 30 minutes. 4 11/06/99 99 active vitamin D3 (cholecalciferol) 25 MCG (1000 UT) tablet Take 1 tablet (25 mcg total) by mouth daily. 4 11/06/99 99 active Problems Problem Status Onset Date Problem Type Date of Resolution Source Allergic rhinitis active 2019-10-18 ProblemAct [facility] UTI symptoms active EncounterDiagnosisAct [facility] Depression active 2019-10-18 ProblemAct [facility] R[facility] Urge urinary incontinence active 2023-05-30 ProblemAct [facility] PANDA (stress urinary incontinence, female) active 2023-05-30 ProblemAct [facility] OAB (overactive bladder) active 2024-07-03 ProblemAct [facility] Pain active EncounterDiagnosisAct [facility]THS[facility]AN Immunizations Vaccine Date Source Lot Number Status Diptheria & Tetanus, 6wks to less than 7yo 07/22/1999 [facility]_T HS[facility]AN completed Tdap Tetanus diptheria acell ular pertussis (Boostrix; Adacel) 7yo and older 04/06/2016 [facility] completed Diptheria & Tetanus, 6wks to less than 7yo 02/23/2008 [facility]_T HSFRAN completed Influenza, Unspecified 07/16/2023 [facility]AN co mpleted Influenza Quadravalent, MDCK , 0.5ml, with preservative (Flucelvax) 6mo and older 07/22/2020 [facility]_S[facility]AN [id number] completed Influenza Quadravalent, MDCK , 0.5ml, with preservative (Flucelvax) 6mo and older 08/09/2019 [facility]_SFRAN [id number] completed
--- NOTE | 2024-10-25 10:08 | A.OFFVIS_ITS ---
Vital Signs 10/25/24 10:09 Height 5 ft 4 in Weight 174 lb BMI 29.9 Intake Visit Reasons: OV-right ankle pain 4 WK follow up Intake Note: Giuliana 64 yr old female presents today for her follow up visit for her W/C injury of her right ankle Sprain DOI 04/16/24. STates she continues to have pain. She is wearing her boot at work and pain when she takes it off at home. She is not able to walk or bear weight with out her boot. Allergies No Known Allergies Allergy (Verified 10/25/24 10:14) Medication List - Last Reconciled 10/25/24 by Aimee Dominguez MD ibuprofen 200 mg PO Q6H PRN naproxen 500 mg PO BID PRN HPI Comments Details: Patient has been followinng orthopedics Tuyet BORGES. I saw patient once for EMG/NCS. Results as below: IMPRESSION: 1. This is a normal study. 2. There is no electrodiagnostic evidence for peroneal neuropathy, tibial neuropathy, lumbosacral plexopathy, lumbar radiculopathy, or peripheral neuropathy. Patient says injury was 04/22/24, a patti lift hit her on right medial ankle. Noted that pain was during ambulation. Could not bear weight. There was some swelling and redness. Applied ice. I think the working diagnosis was ankle sprain. Since then, had 7 visits of PT. Helped from prevention of stiffness. But patient noted that walking on uneven ground, it would feel even worse, described as achy. Aches like a tooth pain. Hard to explain. Sometimes shooting pain across the foot, sometimes shooting pain to the big toe. Denies hypersensitivity to touch. Feels cold to touch. Denies numbness. No foot drop. No achilles pain. She did have pain on lateral ankle, and feels swollen. MRI ankle was ordered by Dr. Hermosillo: IMPRESSION: 1. Focal marrow edema within the dorsal/lateral aspect of the navicular as well as minimal patchy edema within the medial cuneiform and calcaneal neck. Findings could represent stress reactions or osseous contusions. No associated fracture line. 2. Minimal distal Achilles peritendinitis without a measurable tendon tear. 3. Remote sprain/partial tears of the anterior and posterior talofibular ligaments. No evidence of acute ligament injury. 4. Tiny plantar calcaneal spur with minimal reactive marrow edema which could indicate minimal plantar fasciitis. 5. Mild edema within the sinus tarsi which can be seen in the setting of sinus tarsi syndrome. Initially she was off work for at least a week. She tried to go back to work but felt worse around May. Had gone off again, used crutches and somewhat at that time, with rest, felt better. 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 Was given rafael bandage. Bought her own wrap around ankle brace but that would not fit her clogs that she wear at work. Clogs feel more supportive than sneakers. Suspected she is still suffering from right talofibular ankle sprain that has not healed completely. MRI confirms this diagnosis. She continues to have tenderness and some swelling over the talofibular ligaments. Causing some radiating pain towards the medial aspect of the ankle. No signs of Achillis tendinitis. EMG/NCS was negative for neuropathy. I thought about diagnosis of CRPS but she does not have any signs of allodynia, hypersensitivity, temperature or skin changes. We will hold off on any referral to pain management for intervention for CRPS for now. Discussed this with patient so she would understand the thought process. We put her on a boot. Started on ibuprofen for 7 days. Advised relative rest. Continued work restrictions. Today is ffup visit. Says she's been wearing walking boot at work, which has been helpful and painfree while wearing it. But at the end of the day, at home, without the boot that she feels the pain. She would put the boot on at home if she has to do chores or be on her feet. At night, can't get comfortable, constant aching in bed. Still swollen when she is on her foot a lot. 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 MSK: Tender posteriorly right lateral malleolus, but no more swelling. It is not warm anymore. No redness. No allodynia. No hypersensitivity to touch. No changes in skin or temperature. No tenderness over Achillis. No tenderness over plantar fascia. No footdrop. No ankle instability. Results Reviewed Results Reviewed: Ordering Physician: Chance Hermosillo MD Date of Service: 07/14/24 Procedure(s): MR ankle RT wo con Accession Number(s): [id number] cc: Chance Hermosillo MD; BECKY FRYE MD~ EXAMINATION: MR ANKLE WITHOUT CONTRAST, RIGHT CLINICAL INFORMATION: Right ankle pain, swelling, numbness. Medial malleolar trauma on 04/16/2024. COMPARISON: Right ankle radiographs dated 04/17/2024 and 05/14/2024. TECHNIQUE: MRI of the ankle was performed using routine sequences on a high-field scanner. FINDINGS: BONE AND ARTICULAR CARTILAGE: Focal marrow edema within the dorsal/lateral aspect of the navicula as well as minimal patchy edema within the proximal aspect of the medial cuneiform. Additional patchy marrow edema within the calcaneal neck adjacent to the angle of the Gissane. Findings could represent stress reactions or osseous contusions. No fracture. No dislocation. No talar osteochondral lesion. Intact articular cartilage. ACHILLES TENDON: Mild edema adjacent to the distal Achilles tendon consistent with minimal peritendinitis. No tendon tear. OTHER TENDONS: Intact. LIGAMENTS: Heterogeneity of the anterior and posterior talofibular ligaments consistent with remote sprain/partial tears. No evidence of acute ligament injury. JOINT FLUID AND SOFT TISSUES: No joint effusion. No soft tissue mass or fluid collection. PLANTAR FASCIA: Tiny plantar calcaneal spur with minimal reactive marrow edema which could indicate minimal plantar fasciitis. No fascial tear. SINUS TARSI AND TARSAL TUNNEL: Mild edema within the sinus tarsi which can be seen in the setting of sinus tarsi syndrome. Patent tarsal tunnel. MR/MR ankle RT wo con IMPRESSION: 1. Focal marrow edema within the dorsal/lateral aspect of the navicular as well as minimal patchy edema within the medial cuneiform and calcaneal neck. Findings could represent stress reactions or osseous contusions. No associated fracture line. 2. Minimal distal Achilles peritendinitis without a measurable tendon tear. 3. Remote sprain/partial tears of the anterior and posterior talofibular ligaments. No evidence of acute ligament injury. 4. Tiny plantar calcaneal spur with minimal reactive marrow edema which could indicate minimal plantar fasciitis. 5. Mild edema within the sinus tarsi which can be seen in the setting of sinus tarsi syndrome. I reviewed records from the following: Case was previously discussed with ortho Assessment & Plan Assessment & Plan (1) Sprain of talofibular ligament of right ankle: Code(s): S93.491A - Sprain of other ligament of right ankle, initial encounter Category: Medical Plan Right talofibular ankle sprain. MRI confirms this diagnosis. Exam today shows improvement as there is not much swelling or warmth anymore. Still some tenderness. I think wearing the walking boot at work has helped a lot. Continue that. We do need to help her with some kind of brace for nighttime. I recommend wearing ankle sock which would be just enough to keep ankle stable but not too restrictive like the boot. This was provided to patient. Continue current work restrictions for now. Assessment and plan discussed with patient, and patient was agreeable. All questions were answered thoroughly. Follow up 4 weeks. Aimee Dominguez MD, PALLAVI Board Certified, [place] [employer] and Rehabilitation (ABPMR) Board Certified, [place] Board [employer] Electrodiagnostic Medicine (ABEM) Coding Level of Care Code Est Pt Level 4 (49250) Diagnoses Sprain of talofibular ligament of right ankle S93.491A
[2024-10-25 10:09] VITALS: BMI 29.9
== END 2024-10-25 10:36 | disposition home or self-care (01) ==
PROVIDERS: PCP Pediatrics; Visit Provider Physical Medicine & Rehabilitation
DX: S93.491A Sprain of other ligament of right ankle, initial encounter (principal)
CPT/HCPCS: 99213

== ENCOUNTER → 2024-10-25 09:58 | Outpatient (BNVA) | payer OTHER, SELFPAY | PROVIDERS: PCP Pediatrics; Visit Provider Physical Medicine & Rehabilitation | DX: S93.491A Sprain of other ligament of right ankle, initial encounter (principal); W22.8XXA Striking against or struck by other objects, initial encounter; Y93.F2 Activity, caregiving, lifting; Y92.530 Ambulatory surgery center as the place of occurrence of the external cause; Y99.0 Civilian activity done for income or pay | CPT/HCPCS: 99212 ==

== ENCOUNTER 2024-12-13 11:02 | Outpatient (AMB) | payer OTHER, SELFPAY ==
--- NOTE | 2024-12-13 11:05 | A.OFFVIS_ITS ---
Vital Signs 12/13/24 11:09 Height 5 ft 4 in Weight 174 lb BMI 29.9 Intake Visit Reasons: OV - Right Talofibular Ankle Sprain - DOI 04/16/24 Intake Note: Giuliana 64 yr old female presents today for her follow up visit for her W/C injury of her right ankle Sprain DOI 04/16/24. States she is doing better today and she has been off the boot. She mentions that she has paper work that she would like to have filled out today if possible. Allergies No Known Allergies Allergy (Verified 12/13/24 11:09) Medication List - Last Reconciled 12/13/24 by Aimee Dominguez MD ibuprofen 200 mg PO Q6H PRN naproxen 500 mg PO BID PRN HPI Comments Details: Patient has been followinng orthopedics Tuyet BORGES. I saw patient once for EMG/NCS. Results as below: IMPRESSION: 1. This is a normal study. 2. There is no electrodiagnostic evidence for peroneal neuropathy, tibial neuropathy, lumbosacral plexopathy, lumbar radiculopathy, or peripheral neuropathy. Patient says injury was 04/22/24, a patti lift hit her on right medial ankle. Noted that pain was during ambulation. Could not bear weight. There was some swelling and redness. Applied ice. I think the working diagnosis was ankle sprain. Since then, had 7 visits of PT. Helped from prevention of stiffness. But patient noted that walking on uneven ground, it would feel even worse, described as achy. Aches like a tooth pain. Hard to explain. Sometimes shooting pain across the foot, sometimes shooting pain to the big toe. Denies hypersensitivity to touch. Feels cold to touch. Denies numbness. No foot drop. No achilles pain. She did have pain on lateral ankle, and feels swollen. MRI ankle was ordered by Dr. Hermosillo: IMPRESSION: 1. Focal marrow edema within the dorsal/lateral aspect of the navicular as well as minimal patchy edema within the medial cuneiform and calcaneal neck. Findings could represent stress reactions or osseous contusions. No associated fracture line. 2. Minimal distal Achilles peritendinitis without a measurable tendon tear. 3. Remote sprain/partial tears of the anterior and posterior talofibular ligaments. No evidence of acute ligament injury. 4. Tiny plantar calcaneal spur with minimal reactive marrow edema which could indicate minimal plantar fasciitis. 5. Mild edema within the sinus tarsi which can be seen in the setting of sinus tarsi syndrome. Initially she was off work for at least a week. She tried to go back to work but felt worse around May. Had gone off again, used crutches and somewhat at that time, with rest, felt better. 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 Was given rafael bandage. Bought her own wrap around ankle brace but that would not fit her clogs that she wear at work. Clogs feel more supportive than sneakers. Suspected she is still suffering from right talofibular ankle sprain that has not healed completely. MRI confirms this diagnosis. She continues to have tenderness and some swelling over the talofibular ligaments. Causing some radiating pain towards the medial aspect of the ankle. No signs of Achillis tendinitis. EMG/NCS was negative for neuropathy. I thought about diagnosis of CRPS but she does not have any signs of allodynia, hypersensitivity, temperature or skin changes. We will hold off on any referral to pain management for intervention for CRPS for now. Discussed this with patient so she would understand the thought process. We put her on a boot. Started on ibuprofen for 7 days. Advised relative rest. Continued work restrictions. She wore the boot during daytime, work time, for at least 10 weeks. She has been off the boot for 2 weeks now without any pain or swelling. She is happy with her improvement. She has been wearing the ankle sock at night. She is now able to sleep straight through the night without pain. 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 MSK: No more tenderness on or around right lateral malleolus. No swelling. No warmth. No redness. No allodynia. No hypersensitivity to touch. No changes in skin or temperature. No allodynia. No tenderness over Achillis. No tenderness over plantar fascia. No footdrop. No ankle instability. Results Reviewed Results Reviewed: Ordering Physician: Chance Hermosillo MD Date of Service: 07/14/24 Procedure(s): MR ankle RT wo con Accession Number(s): [id number] cc: Chance Hermosillo MD; BECKY FRYE MD~ EXAMINATION: MR ANKLE WITHOUT CONTRAST, RIGHT CLINICAL INFORMATION: Right ankle pain, swelling, numbness. Medial malleolar trauma on 04/16/2024. COMPARISON: Right ankle radiographs dated 04/17/2024 and 05/14/2024. TECHNIQUE: MRI of the ankle was performed using routine sequences on a high-field scanner. FINDINGS: BONE AND ARTICULAR CARTILAGE: Focal marrow edema within the dorsal/lateral aspect of the navicula as well as minimal patchy edema within the proximal aspect of the medial cuneiform. Additional patchy marrow edema within the calcaneal neck adjacent to the angle of the [place]. Findings could represent stress reactions or osseous contusions. No fracture. No dislocation. No talar osteochondral lesion. Intact articular cartilage. ACHILLES TENDON: Mild edema adjacent to the distal Achilles tendon consistent with minimal peritendinitis. No tendon tear. OTHER TENDONS: Intact. LIGAMENTS: Heterogeneity of the anterior and posterior talofibular ligaments consistent with remote sprain/partial tears. No evidence of acute ligament injury. JOINT FLUID AND SOFT TISSUES: No joint effusion. No soft tissue mass or fluid collection. PLANTAR FASCIA: Tiny plantar calcaneal spur with minimal reactive marrow edema which could indicate minimal plantar fasciitis. No fascial tear. SINUS TARSI AND TARSAL TUNNEL: Mild edema within the sinus tarsi which can be seen in the setting of sinus tarsi syndrome. Patent tarsal tunnel. MR/MR ankle RT wo con IMPRESSION: 1. Focal marrow edema within the dorsal/lateral aspect of the navicular as well as minimal patchy edema within the medial cuneiform and calcaneal neck. Findings could represent stress reactions or osseous contusions. No associated fracture line. 2. Minimal distal Achilles peritendinitis without a measurable tendon tear. 3. Remote sprain/partial tears of the anterior and posterior talofibular ligaments. No evidence of acute ligament injury. 4. Tiny plantar calcaneal spur with minimal reactive marrow edema which could indicate minimal plantar fasciitis. 5. Mild edema within the sinus tarsi which can be seen in the setting of sinus tarsi syndrome. I reviewed records from the following: Case was previously discussed with ortho Assessment & Plan Assessment & Plan (1) Sprain of talofibular ligament of right ankle: Code(s): S93.491A - Sprain of other ligament of right ankle, initial encounter Category: Medical Plan She has done well in the last 10-12 weeks. We treated her nonhealing right ankle sprain with a walking boot for 10 weeks. She has been able to graduate from that. No recurring swelling or pain for the last 2 weeks. She is ready to go back to full-time work starting tomorrow 12/14/2024, without restrictions. We did talk about red flags watch out for and when to call our office for concerns. Work/disability form filled up. Assessment and plan discussed with patient, and patient was agreeable. All questions were answered thoroughly. Follow up 8 weeks for follow-up. Call sooner if needed. Aimee Dominguez MD, PALLAVI Board Certified, [place] Board [employer] Physical Medicine and Rehabilitation (ABPMR) Board Certified, [place] Board of Electrodiagnostic Medicine (ABEM) Coding Level of Care Code Est Pt Level 3 (42830) Diagnoses Sprain of talofibular ligament of right ankle S93.491A
--- OUTSIDE RECORDS SUMMARY | 2024-12-13 11:07 | XMS_ITS | Clinical Summary ---
Author Organization [facility] Address [address] [id number] Care Team Providers Care Continuous Drier Helper Name Role Phone Maulik Saravia MD Primary Care Provider + [phone] Allergies No known active allergies Medications Medication Sig Dispensed Refills Start Date End Date Status vitamin D3 (cholecalciferol) 25 MCG (1000 UT) tablet Take 1 tablet (25 mcg total) by mouth daily. 0 Active polyethylene glycol (MIRALAX) 17 g packet Take 17 g by mouth daily. 14 each 2 06/28/2023 Active Additional Information Patient not taking.Reason: Other, Reported on 08/22/2024 ibuprofen 600 MG tablet Take 1 tablet (600 mg total) by mouth every 6 (six) hours. 30 tablet 0 08/27/2024 Active acetaminophen (TYLENOL) 325 MG tablet Take 2 tablets (650 mg total) by mouth every 6 (six) hours. 60 tablet 0 08/27/2024 Active oxyCODONE (ROXICODONE) 5 MG immediate release tablet Take 1 tablet (5 mg total) by mouth every 6 (six) hours as needed (severe pain). 5 tablet 0 08/27/2024 Active Active Problems Problem Noted Date Diagnosed Date OAB (overactive bladder) 07/03/2024 PANDA (stress urinary incontinence, female) 2022 Overview: Added automatically from request for surgery [id number] Urge urinary incontinence 05/30/2023 Overview: Added automatically from request for surgery [id number] Social History Tobacco Use Types Packs/Day Years Used Date Smoking Tobacco: Former Cigarettes Q uit: 2015 Smokeless Tobacco: Never Tobacco Cessation:Counseling Given: Not Answered Alcohol Use Standard Drinks/Week Comments Never 0 (1 standard drink = 0.6 oz pur e alcohol) Sex and Gender Information Value Date Recorded Sex Assigned at Female 05/30/2023 2:54 PM EDT Gender Identity Not on file Sexual Orientation Not on file Job Start Date Occupation Industry Not on file Not on file Not on file Last Filed Vital Signs Vital Sign Reading Time Taken Comments Blood Pressure 132/88 08/27/2024 10:03 AM EDT Pulse 61 08/27/2024 10:03 AM EDT Temperature 36.4 ??C (97.6 ??F) 08/27/2024 9:30 AM ED T Respiratory Rate 18 08/27/2024 10:03 AM EDT Oxygen Saturation 97% 08/27/2024 10:03 AM EDT Inhaled Oxygen Concentration - - Weight 77.1 kg (170 lb) 08/22/2024 8:29 AM EDT Height 162.6 cm (5' 4 ) 08/22/2024 8:29 AM EDT Body Mass Index 29.18 08/22/2024 8:29 AM EDT Plan of Treatment Health Maintenance Due Date Last Done Comments Hepatitis C Screening 1962 Depression Screening 1974 BMI Counseling 1980 Preventative Health Evaluation 1980 Cervical Cancer Screening (Pap Smear) 1983 Colon Cancer Screening (Colonoscopy) 2007 Breast Cancer Screening (Mammogram) 2012 Shingrix-Zoster Vaccine (1 o f 2) 2012 COVID-19 Vaccine (3 - 2023-2 5 season) 2024 11/19/2020, 10/27/2020 Influenza Vaccine (#1) 2024 0, 08/09/2019 DTap / Tdap / Td (4 - Td or Tdap) 04/06/2026 04/06/2016, 02/23/2008, 07/22/1999 RSV Adult > 60+ Yrs or (1 - 1-dose 75+ series) 2037 Hepatitis B Vaccines Aged Out No long er eligible based on patient's age to complete this topic Pneumococcal Vaccine Aged Out No long er eligible based on patient's age to complete this topic RSV Ped < 20 months Aged Out No longe r eligible based on patient's age to complete this topic Medical Devices Implanted Type Area Wash Mill Operator Device Identifier Shelf Expiration Date Model / Serial / Lot System Gynecare Tvt Exact 3mm Troc Retro Pubic Urnry Incont [facility]-Ethi [id number] - [id number] Implanted:Qty: 1 on 06/28/2023 by Danette Hess MD at [facility] [place] and Med N/A: Vagina J [employer] 11/06/2023 TVTRL / / [id number] Kit Tined Lead [employer] [id number] - [id number] Implanted:Qty: 1 on 08/27/2024 by Danette Hess MD at [facility] [place] and Med Lower: Back [employer] 06/07/2027 1201 / [id number] 2 / Neurostimulator Non Rechrg ShukriwyVibeDeckAugustin [id number] - [id number] Implanted:Qty: 1 on 08/27/2024 by Danette Hess MD at [facility] [place] and Med Lower: Back [employer] 03/07/2025 4101 / [id number] / Care Teams Continuous Drier Helper Relationship Specialty Start Date End Date Maulik Saravia MD PCP - General Tent Worker 05/30/23
[2024-12-13 11:09] VITALS: BMI 29.9
== END 2024-12-13 11:41 | disposition home or self-care (01) ==
PROVIDERS: PCP Pediatrics; Visit Provider Physical Medicine & Rehabilitation
DX: S93.491D Sprain of other ligament of right ankle, subsequent encounter (principal)
CPT/HCPCS: 99213

== ENCOUNTER → 2024-12-13 11:02 | Outpatient (BNVA) | payer OTHER, SELFPAY | PROVIDERS: PCP Pediatrics; Visit Provider Physical Medicine & Rehabilitation | DX: S93.491D Sprain of other ligament of right ankle, subsequent encounter (principal); X58.XXXD Exposure to other specified factors, subsequent encounter | CPT/HCPCS: 99212 ==

== ENCOUNTER 2025-02-14 08:49 | Outpatient (AMB) | payer OTHER, SELFPAY ==
--- NOTE | 2025-02-14 08:52 | A.OFFVIS_ITS ---
Intake Visit Reasons: OV - Right Talofibular Ankle Sprain - DOI 04/16/24 Intake Note: Giuliana is a 64 year old female presents today for her follow up visit for her Right Talofibular Ankle Sprain DOI 04/16/24. At her last visit she was given a note to go back to full-time work starting 12/14/2024, without restrictions. She currently states she continues to have pain. Engraver Pantograph Required: No Allergies No Known Allergies Allergy (Verified 02/14/25 09:04) Medication List - Last Reconciled 02/14/25 by Alyssa Ribeiro RN HPI Comments Details: Patient has been followinng orthopedics Tuyet BORGES. I saw patient once for EMG/NCS. Results as below: IMPRESSION: 1. This is a normal study. 2. There is no electrodiagnostic evidence for peroneal neuropathy, tibial neuropathy, lumbosacral plexopathy, lumbar radiculopathy, or peripheral neuropathy. Patient says injury was 04/22/24, a patti lift hit her on right medial ankle. Noted that pain was during ambulation. Could not bear weight. There was some swelling and redness. Applied ice. I think the working diagnosis was ankle sprain. Since then, had 7 visits of PT. Helped from prevention of stiffness. But patient noted that walking on uneven ground, it would feel even worse, described as achy. Aches like a tooth pain. Hard to explain. Sometimes shooting pain across the foot, sometimes shooting pain to the big toe. Denies hypersensitivity to touch. Feels cold to touch. Denies numbness. No foot drop. No achilles pain. She did have pain on lateral ankle, and feels swollen. MRI ankle was ordered by Dr. Hermosillo: IMPRESSION: 1. Focal marrow edema within the dorsal/lateral aspect of the navicular as well as minimal patchy edema within the medial cuneiform and calcaneal neck. Findings could represent stress reactions or osseous contusions. No associated fracture line. 2. Minimal distal Achilles peritendinitis without a measurable tendon tear. 3. Remote sprain/partial tears of the anterior and posterior talofibular ligaments. No evidence of acute ligament injury. 4. Tiny plantar calcaneal spur with minimal reactive marrow edema which could indicate minimal plantar fasciitis. 5. Mild edema within the sinus tarsi which can be seen in the setting of sinus tarsi syndrome. Initially she was off work for at least a week. She tried to go back to work but felt worse around May. Had gone off again, used crutches and somewhat at that time, with rest, felt better. 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 Was given rafael bandage. Bought her own wrap around ankle brace but that would not fit her clogs that she wear at work. Clogs feel more supportive than sneakers. Suspected she was still suffering from right talofibular ankle sprain that has not healed completely. MRI confirms this diagnosis. She continues to have tenderness and some swelling over the talofibular ligaments. Causing some radiating pain towards the medial aspect of the ankle. No signs of Achillis tendinitis. EMG/NCS was negative for neuropathy. I thought about diagnosis of CRPS but she does not have any signs of allodynia, hypersensitivity, temperature or skin changes. We will hold off on any referral to pain management for intervention for CRPS for now. Discussed this with patient so she would understand the thought process. We put her on a boot. Started on ibuprofen for 7 days. Advised relative rest. Continued work restrictions. She wore the boot during daytime, work time, for at least 10 weeks. Last visit was 12/13/2019 5. At that time, she had been off the boot for 2 weeks now without any pain or swelling. She was happy with her improvement. She has been wearing the ankle sock at night. She was now able to sleep straight through the night without pain. Return to work without restrictions 12/14/24. She feels achiness/soreness with cold or rainy weather. Takes Tylenol which would go away. ROM and strength and walking is good. No swelling. 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 MSK: No tenderness on or around right lateral malleolus. No swelling. No warmth. No redness. No allodynia. No hypersensitivity to touch. No changes in skin or temperature. No allodynia. No tenderness over Achillis. No tenderness over plantar fascia. No footdrop. No ankle instability. Able to stand on heels and toes without weakness. Assessment & Plan Assessment & Plan (1) Sprain of talofibular ligament of right ankle: Code(s): S93.491A - Sprain of other ligament of right ankle, initial encounter Category: Medical Plan It took a long time but she has recovered from the right ankle sprain. What she is describing as soreness with rainy weather could be just prolonged recovery. Or early CRPS. However I do not see other signs of CRPS such as allodynia, hypersensitivity or skin changes. She was worried about arthritis so we will check ankle x-rays today. We talked about what to watch out for. Assessment and plan discussed with patient, and patient was agreeable. All questions were answered thoroughly. No further follow up unless needed. We will send her x-ray results. Aimee Dominguez MD, PALLAVI Board Certified, [place] Board of Physical Medicine and Rehabilitation (ABPMR) Board Certified, [place] Board of Electrodiagnostic Medicine (ABEM) Coding Level of Care Code Est Pt Level 3 (79077) Diagnoses Sprain of talofibular ligament of right ankle S93.491A
--- OUTSIDE RECORDS SUMMARY | 2025-02-14 09:16 | XMS_ITS | Clinical Summary ---
Author Organization [facility] Address [address] [id number] Care Team Providers Care Artist Consultant Name Role Phone Maulik Saravia MD Primary Care Provider + [phone] Allergies No known active allergies Medications Medication [...] Overview: Added automatically from request for surgery [id number] Urge urinary incontinence 05/30/2023 Overview: Added automatically from request for surgery [id number] Social History Tobacco Use Types Packs/Day Years [...] this topic Medical Devices Implanted Type Area Hydraulic Repairer Device Identifier Shelf Expiration Date Model / Serial / Lot System Gynecare Tvt Exact 3mm Troc Retro Pubic Urnry Incont [facility]-Ethi Tvtrl-[id number] - [id number] Implanted:Qty: 1 on 06/28/2023 [place] [facility] [place]A: Vagina J [employer] 11/06/2023 TVTRL / / [id number] Kit Tined Lead [employer] [id number] - [id number] Implanted:Qty: 1 on 08/27/2024 by [place]ette Hess [place] [facility] [place] Lower: Back [employer] 06/07/2027 1201 / [id number] 2 / Neurostimulator Non Rechrg ShukrimoChaologixAugustin [id number] - [id number] Implanted:Qty: 1 on 08/27/2024 by Danette Hess MD [place] [facility] [place] Lower: Back [employer] 03/07/2025 4101 / [id number] / Care Teams Artist Consultant Relationship Specialty Start Date End Date Maulik Saravia MD PCP - General Chestnut Tanner 05/30/23
== END 2025-02-14 09:27 | disposition home or self-care (01) ==
LOC: HO.HOS 08:50
PROVIDERS: PCP Pediatrics; Visit Provider Physical Medicine & Rehabilitation
DX: S93.491A Sprain of other ligament of right ankle, initial encounter (principal)
CPT/HCPCS: 99213

== ENCOUNTER → 2025-02-14 08:49 | Outpatient (BNVA) | payer OTHER, SELFPAY | PROVIDERS: PCP Pediatrics; Visit Provider Physical Medicine & Rehabilitation | DX: S93.491D Sprain of other ligament of right ankle, subsequent encounter (principal) | CPT/HCPCS: 99212 ==

== ENCOUNTER 2025-02-14 09:18 | Outpatient (REF) | payer OTHER, SELFPAY ==
--- NOTE | ~2025-02-14 | XR_ITS ---
EXAMINATION: XR FOOT 3 OR MORE VIEWS RIGHT HISTORY: M79.673 - Pain in unspecified foot COMPARISON: There are no prior studies available for comparison. FINDINGS: Three views of the right foot are submitted. Osseous mineralization is normal. There is no fracture or dislocation. The joint spaces are preserved. There is a tiny plantar calcaneal spur. The soft tissues are unremarkable. XR/XR foot RT min 3V IMPRESSION: Tiny plantar calcaneal spur. Otherwise unremarkable examination of the right foot. Electronically signed by: Murray Angela MD 02/14/2025 09:37 AM EDT
--- OUTSIDE RECORDS SUMMARY | 2025-02-22 08:03 | XMS_ITS | Clinical Summary ---
Author Organization [facility] Address [address] [id number] Care Team Providers Care Chief Of Hospital Medicine Name Role Phone Maulik Saravia MD Primary Care Provider + [phone] Allergies No known active allergies Medications Medication [...] Overview: Added automatically from request for surgery [id number] Urge urinary incontinence 05/30/2023 Overview: Added automatically from request for surgery [id number] Social History Tobacco Use Types Packs/Day Years [...] this topic Medical Devices Implanted Type Area Quahogger Device Identifier Shelf Expiration Date Model / Serial / Lot System Gynecare Tvt Exact 3mm Troc Retro Pubic Urnry Incont [facility]-Ethi Tvtrl-[id number] - [id number] Implanted:Qty: 1 on 06/28/2023 by Danette Hess MD at [facility] [place] and Med N/A: Vagina J [employer] 11/06/2023 TVTRL / / [id number] Kit Tined Lead [employer] [id number] - [id number] Implanted:Qty: 1 on 08/27/2024 by Danette Hess MD at [facility] [place] and Med Lower: Back [employer] 06/07/2027 1201 / [id number] 2 / Neurostimulator Non Rechrg ShukrinyCoreworxAugustin [id number] - [id number] Implanted:Qty: 1 on 08/27/2024 by Danette Hess MD at [facility] [place] and Med Lower: Back [employer] 03/07/2025 4101 / [id number] 5 / Care Teams Chief Of Hospital Medicine Relationship Specialty Start Date End Date Maulik Saravia MD PCP - General Artist Suspect 05/30/23
--- OUTSIDE RECORDS SUMMARY | 2025-02-22 15:13 | XMS_ITS | Clinical Summary ---
Author Organization [facility] Address [address] [id number] Care Team Providers Care Roundhouse Firer/Fireman Name Role Phone Maulik Saravia MD Primary Care Provider + [phone] Allergies No known active allergies Medications Medication [...] Overview: Added automatically from request for surgery [id number] Urge urinary incontinence 05/30/2023 Overview: Added automatically from request for surgery [id number] Social History Tobacco Use Types Packs/Day Years [...] this topic Medical Devices Implanted Type Area Regulatory Internship Device Identifier Shelf Expiration Date Model / Serial / Lot System Gynecare Tvt Exact 3mm Troc Retro Pubic Urnry Incont [facility]-Ethi Tvtrl-[id number] - [id number] Implanted:Qty: 1 on 06/28/[place] [facility] [place]A: Vagina J [employer] 11/06/2023 TVTRL / / [id number] Kit Tined Lead readfy [id number] - [id number] Implanted:Qty: 1 on 08/27/2024 by [place] [facility] [place] Lower: Back [employer] 06/07/2027 1201 / [id number] 2 / Neurostimulator Non Rechrg ShukrimeTTi [employer] InstrumentsAugustin [id number] - [id number] Implanted:Qty: 1 on 08/27/2024 by [place] [facility] [place]: Back [employer] 03/07/2025 4101 / [id number] / Care Teams Roundhouse Firer/Fireman Relationship Specialty Start Date End Date Maulik Saravia MD PCP - General Deployment Technician 05/30/23
== END 2025-02-14 09:19 | disposition home or self-care (01) ==
LOC: HO.HOSX 09:18
PROVIDERS: Visit Provider Physical Medicine & Rehabilitation
DX: M79.671 Pain in right foot (principal)
CPT/HCPCS: 73630

== ENCOUNTER → 2025-02-14 09:18 | Outpatient (BNV) | payer OTHER, SELFPAY | PROVIDERS: Visit Provider Radiology Diagnostic Radiology | DX: M79.671 Pain in right foot (principal); M77.31 Calcaneal spur, right foot | CPT/HCPCS: 73630 ==